=== PATIENT | female | born 1980 | race African-American/Black ===

== ENCOUNTER 2025-04-20 18:21 | Emergency (ER) | payer OTHER, SELFPAY ==
[2025-04-20 18:23] VITALS: BP 192/111
[2025-04-20 18:55] LABS: Hematocrit 29.3 % (37.0-47.0); Hemoglobin 8.4 g/dL (12.0-16.0); Mean Corp Hgb Conc. 28.7 g/dL (33.0-37.0); Mean Corpuscular Volume 66.4 fL (81.0-99.0); Nucleated Red Blood Cells % 0 %; Platelet Count 506 10^3/uL (130-400); Red Cell Dist. Width 19.9 % (11.5-14.5)
[2025-04-20 19:05] LABS: HCG, Serum Qualitative Screen Negative
[2025-04-20 19:08] LABS: Blood Urea Nitrogen 7 mg/dl (7-17); Calcium 9.2 mg/dl (8.4-10.2); Carbon Dioxide 21 mmol/L (22-30); Chloride 107 mmol/L (98-107); Glucose 103 mg/dl (70-99); Potassium 3.6 mmol/L (3.5-5.1); Sodium 137 mmol/L (135-145); eGFR > 60.00
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
[2025-04-20 21:44] VITALS: BMI 29.1
[2025-04-20 21:46] VITALS: BP 142/93
[2025-04-20] MEDS: ATIVAN 1 MG PO (21:48)
[2025-04-20] MEDS: TORADOL 30 MG IM (21:48)
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
== END 2025-04-20 23:20 ==
LOC: EMR 18:21
PROVIDERS: Emergency Medicine; EMERGENCY PHYSICIAN Student in an Organized Health Care Education/Training Program; FAMILY PHYSICIAN Internal Medicine
DX: F32.A Depression, unspecified (principal); F31.9 Bipolar disorder, unspecified; F41.9 Anxiety disorder, unspecified; T43.226A Underdosing of selective serotonin reuptake inhibitors, initial encounter; Z91.148 Patient's other noncompliance with medication regimen for other reason; Y04.2XXA Assault by strike against or bumped into by another person, initial encounter; Y07.12 Biological mother, perpetrator of maltreatment and neglect; Z63.8 Other specified problems related to primary support group; D64.9 Anemia, unspecified
CPT/HCPCS: 99284; 96372; 80048; 80306; 82077; 84703; 85025

== ENCOUNTER 2025-04-30 07:25 | Emergency (ER) | payer OTHER, SELFPAY ==
[2025-04-30 07:31] VITALS: BP 132/90
[2025-04-30 07:41] VITALS: BMI 28.2
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
[2025-04-30 09:11] LABS: HCG, Urine Qualitative Screen Negative
== END 2025-04-30 09:16 | disposition home or self-care (01) ==
LOC: EMR 07:25
PROVIDERS: EMERGENCY PHYSICIAN Emergency Medicine
DX: S63.502A Unspecified sprain of left wrist, initial encounter (principal); S63.501A Unspecified sprain of right wrist, initial encounter; S80.02XA Contusion of left knee, initial encounter; F32.A Depression, unspecified; Y04.8XXA Assault by other bodily force, initial encounter; Y07.410 Brother, perpetrator of maltreatment and neglect; F31.9 Bipolar disorder, unspecified; F41.9 Anxiety disorder, unspecified; T43.226A Underdosing of selective serotonin reuptake inhibitors, initial encounter; Z91.148 Patient's other noncompliance with medication regimen for other reason
CPT/HCPCS: 99283; 73110; 81025